=== PATIENT | male | born 1970 | race Caucasian/White ===

== ENCOUNTER 2019-12-04 23:11 | Emergency (ER) | payer OTHER ==
[~2019-12-04] VITALS: Ht 190.5 cm; Wt 140.6 kg
[~2019-12-04 23:11] MED LIST: ACIPHEX 20 MG T20 MG PO; ADULT LOW DOSE81 MG PO; ALLERGEN EAR DR15 M1 OT; ALTACE 1.25 M1.25 M1 PO; ALTACE10 M1 PO; AMLODIPINE BESYL5 MG PO; BACTRIM DS TAB1 EACH PO; CARVEDILOL25 MG PO; CEFDINIR OR; CLONIDINE0.1 PO; FENOFIBRATE200 MG PO; KEFLEX500 MG PO; NEO-POLYMYXIN-H10 ML OT; NORCO 5-325 TA1 EAC1 PO; PERCOCET 5-3251 EACH PO; PRILOSEC40 MG PO; TOPROL XL100 MG PO
[2019-12-04] MEDS ORDERED: NORCO 5-325 TA1 EAC1 PO (23:41)
[2019-12-04] MEDS ORDERED: BACTRIM DS TAB1 EAC1 PO (23:41)
[2019-12-04 23:55] VITALS: BP 200/100
== END 2019-12-04 23:55 | disposition home or self-care (01) ==
LOC: M.ERS 23:11
DX: L02.511 Cutaneous abscess of right hand (principal); K21.9 Gastro-esophageal reflux disease without esophagitis; E78.00 Pure hypercholesterolemia, unspecified; I10 Essential (primary) hypertension; Z90.49 Acquired absence of other specified parts of digestive tract; Z91.041 Radiographic dye allergy status; Z87.891 Personal history of nicotine dependence

== ENCOUNTER 2019-12-08 18:51 | Emergency (ER) | payer OTHER ==
[~2019-12-08] VITALS: Ht 190.5 cm; Wt 140.6 kg
[~2019-12-08 18:51] MED LIST changes: +BACTRIM DS TAB1 EAC1 PO
[2019-12-08] MEDS ORDERED: MUPIROCIN1 GM TOP (21:22)
[2019-12-08] MEDS ORDERED: CLEOCIN HCL300 MG PO (21:22)
[2019-12-08] MEDS ORDERED: MOBIC7.5 MG PO (21:22)
[2019-12-08 21:33] VITALS: BP 186/107
== END 2019-12-08 21:34 | disposition home or self-care (01) ==
LOC: M.ERS 18:51
DX: L03.011 Cellulitis of right finger (principal); I10 Essential (primary) hypertension; E78.00 Pure hypercholesterolemia, unspecified; K21.9 Gastro-esophageal reflux disease without esophagitis; Z90.89 Acquired absence of other organs; Z91.041 Radiographic dye allergy status; Z87.891 Personal history of nicotine dependence